=== PATIENT | male | born 1955 | race Caucasian/White ===

== ENCOUNTER 2018-09-02 20:18 | Emergency (ER) | payer OTHER, SELFPAY ==
[2018-09-02] MEDS ORDERED: Sodium Chloride 0.9% 10 ML Syringe FLUSH PRN (20:40)
[2018-09-02] MEDS: Sodium Chloride 0.9% 1,000 ML IV SCH ×2 (20:52→21:55)
[2018-09-02 21:08] LABS: CHLORIDE,CL 105 mmol/L (98-107); SODIUM,NA 142 mmol/L (136-145)
--- NOTE | 2018-09-02 22:20 | EDM.PDOC ---
ED HPI GENERAL MEDICAL PROBLEM - General Chief Complaint: General Stated Complaint: seizure, dehydration?, leg pain Time Seen by Provider: 09/02/18 20:30 Source of Information: Reports: Patient, Family History Limitations: Reports: No Limitations - History of Present Illness INITIAL COMMENTS - FREE TEXT/NARRATIVE: Patient is a 62-year-old gentleman who came into the hospital complaining of nausea and generalized weakness fatigue possible dehydration patient states that at 5 PM his friend came in and asked when he started feeling bad or he was having sweats and shakes and chills that would feel hot he stated that he passed out and his noted that he was shaking and his eyes rolled back after this patient was brought in for evaluation had some nausea also states that his right groin started hurting earlier today for the last couple days he' s been bathing [employer] and doing chores at home Onset: Gradual Duration: Hour(s):, Improving Location: Reports: Generalized Quality: Reports: Ache Improves with: Reports: None Worsens with: Reports: None Associated Symptoms: Reports: Nausea/Vomiting Right Upper Thigh Pain Score (Numeric/FACES): 8 - Related Data Allergies Allergy/AdvReac Type Severity Reaction Status Date / Time No Known Allergies Allergy Verified 09/02/18 20:21 Home Meds: Home Meds . [No Known Home Meds] 09/02/18 [History] Past Medical History HEENT History: Reports: Allergic Rhinitis Musculoskeletal History: Reports: Arthritis, Fracture Other Musculoskeletal History: multiple fx of toes and fingers. Right knee pain - Past Surgical History HEENT Surgical History: Reports: Cataract Surgery, Oral Surgery GI Surgical History: Reports: Appendectomy Musculoskeletal Surgical History: Reports: Joint Replacement Other Musculoskeletal Surgeries/Procedures:: left knee replacement Social & Family History - Tobacco Use Smoking Status *Q: Current Every Day Smoker Years of Tobacco use: 49 Packs/Tins Daily: 0.2 - Caffeine Use Caffeine Use: Reports: Coffee, Soda ED ROS GENERAL - Review of Systems Review Of Systems: See Below Constitutional: Reports: No Symptoms HEENT: Reports: Rhinitis, Sinus Problem (Chronic) Respiratory: Reports: Other (Smoker) Cardiovascular: Reports: No Symptoms Endocrine: Reports: No Symptoms GI/Abdominal: Reports: Nausea : Reports: No Symptoms Musculoskeletal: Reports: Other (Right groin pain to palpation not so much when resting) Neurological: Reports: No Symptoms Psychiatric: Reports: No Symptoms Hematologic/Lymphatic: Reports: No Symptoms Immunologic: Reports: No Symptoms ED EXAM, GENERAL - Physical Exam Exam: See Below Exam Limited By: No Limitations General Appearance: Alert, WD/WN, No Apparent Distress, Mild Distress Ears: Normal External Exam, Normal Canal, Hearing Grossly Normal, Normal TMs Ear Exam: Bilateral Ear: Auricle Normal, Canal Normal, TM normal Nose: Nasal Drainage Throat/Mouth: Normal Inspection, Normal Lips, Normal Teeth, Normal Gums, Normal Oropharynx, Normal Voice, No Airway Compromise Head: Atraumatic, Normocephalic Neck: Normal Inspection, Supple, Non-Tender, Full Range of Motion Respiratory/Chest: No Respiratory Distress, Lungs Clear, Normal Breath Sounds, No Accessory Muscle Use, Chest Non-Tender Cardiovascular: Normal Peripheral Pulses, Regular Rate, Rhythm, No Edema, No Gallop, No JVD, No Murmur, No Rub GI/Abdominal: Normal Bowel Sounds, Soft, Non-Tender, No Organomegaly, No Distention, No Abnormal Bruit, No Mass Course - Vital Signs Last Recorded V/S: Last Vital Signs Temp 97.1 F 09/02/18 20:22 Pulse 78 09/02/18 22:30 Resp 18 09/02/18 20:22 BP 116/59 L 09/02/18 22:30 Pulse Ox 100 09/02/18 22:30 - Orders/Labs/Meds Orders: Active Orders 24 hr Category Date Time Status Sodium Chloride 0.9% [Normal Saline] 1,000 ml Med 09/02/18 20:45 Active IV ASDIRECTED Sodium Chloride 0.9% [Saline Flush] Med 09/02/18 20:40 Active 10 ml FLUSH ASDIRECTED PRN Saline Lock Insert [OM.PC] Stat Oth 09/02/18 20:40 Ordered Medication Orders Sodium Chloride (Normal Saline) 1,000 mls @ 999 mls/hr IV ASDIRECTED CLAUDIA Stop: 09/03/18 21:46 Last Admin: 09/02/18 21:55 Dose: 999 mls/hr Infusion: 09/02/18 21:53 Dose: 999 mls/hr Admin: 09/02/18 20:52 Dose: 999 mls/hr Sodium Chloride (Saline Flush) 10 ml FLUSH ASDIRECTED PRN PRN Reason: Keep Vein Open Last Admin: 09/02/18 20:51 Dose: 10 ml Labs: Laboratory Tests 09/02/18 09/02/18 Range/Units 20:40 20:40 WBC 11.4 H (4.0-10.2) K/uL RBC 5.20 (4.33-5.41) M/uL Hgb 15.3 (13.1-16.8) g/dL Hct 43.9 (39.0-49.0) % MCV 84.4 (84.0-98.0) fL MCH 29.4 (28.2-33.3) pg MCHC 34.9 (31.7-36.0) g/dL RDW 14.4 H (11.2-14.1) % Plt Count 227 (150-350) K/uL Neut % (Auto) 74.3 (45.0-80.0) % Lymph % (Auto) 16.7 (10.0-50.0) % [place] % (Auto) 7.3 (2.0-14.0) % Eos % (Auto) 1.4 (0.0-5.0) % Baso % (Auto) 0.3 (0.0-2.0) % Neut # (Auto) 8.46 H (1.40-7.00) K/uL Lymph # (Auto) 1.90 (0.50-3.50) K/uL [place] # (Auto) 0.83 (0.00-1.00) K/uL Eos # (Auto) 0.16 (0.00-0.50) K/uL Baso # (Auto) 0.03 (0.00-0.20) K/uL Sodium 142 (136-145) mmol/L Potassium 3.5 (3.5-5.1) mmol/L Chloride 105 (98-107) mmol/L Carbon Dioxide 25.0 (21.0-32.0) mmol/L BUN 20 H (7-18) mg/dL Creatinine 1.02 (0.51-1.17) mg/dL Est Cr Clr Drug Dosing 78.95 mL/min Estimated GFR (MDRD) > 60 mL/min Glucose 118 H (74-106) mg/dL Calcium 8.9 (8.5-10.1) mg/dL Total Bilirubin 0.6 (0.2-1.0) mg/dL AST 13 L (15-37) U/L ALT 24 (12-78) U/L Alkaline Phosphatase 66 (46-116) IU/L Creatine Kinase 120 (26-308) U/L Total Protein 7.1 (6.4-8.2) g/dL Albumin 3.7 (3.4-5.0) g/dL Meds: Medications Generic Name Dose Route Start Last Admin Trade Name Freq PRN Reason Stop Dose Admin Sodium Chloride 1,000 mls @ 999 mls/hr 09/02/18 20:45 09/02/18 21:55 Normal Saline IV 09/03/18 21:46 999 mls/hr ASDIRECTED CLAUDIA Administration Sodium Chloride 10 ml 09/02/18 20:40 09/02/18 20:51 Saline Flush FLUSH 10 ml ASDIRECTED PRN Administration Keep Vein Open Departure - Departure Time of Disposition: 22:46 Disposition: DC/Tfer to [facility] Condition: Fair Clinical Impression: Dehydration - Discharge Information *PRESCRIPTION DRUG MONITORING PROGRAM REVIEWED*: No *COPY OF PRESCRIPTION DRUG MONITORING REPORT IN PATIENT SURINDER: No Referrals: Nancy Barron PA [Primary Care Provider] - Forms: ED Department Discharge Care Plan Goals: Patient hydrated with 2 L of normal saline feeling better no further nausea I will send him home and instructed to come if he starts feeling sick or having seizures or any discomfort at this time no further workup is needed he can follow-up with primary - My Orders Last 24 Hours: My Active Orders 09/02/18 20:40 Sodium Chloride 0.9% [Saline Flush] 10 ml FLUSH ASDIRECTED PRN Saline Lock Insert [OM.PC] Stat 09/02/18 20:45 Sodium Chloride 0.9% [Normal Saline] 1,000 ml IV ASDIRECTED - Assessment/Plan Last 24 Hours: My Active Orders 09/02/18 20:40 Sodium Chloride 0.9% [Saline Flush] 10 ml FLUSH ASDIRECTED PRN Saline Lock Insert [OM.PC] Stat 09/02/18 20:45 Sodium Chloride 0.9% [Normal Saline] 1,000 ml IV ASDIRECTED
== END 2018-09-02 23:03 | disposition home or self-care (01) ==
LOC: LL.ED 20:18
DX: E86.0 Dehydration (principal); R11.2 Nausea with vomiting, unspecified; R10.31 Right lower quadrant pain; M19.90 Unspecified osteoarthritis, unspecified site; F17.210 Nicotine dependence, cigarettes, uncomplicated; Z98.49 Cataract extraction status, unspecified eye; Z98.890 Other specified postprocedural states; Z90.49 Acquired absence of other specified parts of digestive tract; Z96.652 Presence of left artificial knee joint
CPT/HCPCS: 36415; 80053; 82550; 85025; 96360; 96361; 99284; J7030

== ENCOUNTER 2019-06-12 02:19 | Emergency (ER) | payer SELFPAY ==
[2019-06-12] MEDS ORDERED: Meperidine PF 25 MG/ML SDV IM ONE (02:46)
--- NOTE | 2019-06-12 02:46 | EDM.PDOC ---
ED HPI GENERAL MEDICAL PROBLEM - General Chief Complaint: Lower Extremity Injury/Pain Stated Complaint: Left hip pain Time Seen by Provider: 06/12/19 02:40 Source of Information: Reports: Patient, Old Records ([facility] chart/EMR) History Limitations: Reports: No Limitations - History of Present Illness INITIAL COMMENTS - FREE TEXT/NARRATIVE: The patient was brought to the emergency room via private automobile by his for evaluation of 11/25 left-sided low back pain, spasms, and anterior thigh discomfort radiating to the left knee with no history of fall, injury, etc. Symptoms started on 06/08 with patient only taking 2 tablets of Tylenol this past evening at about 20:00 hours with no relief. He denies any other topical treatments, previous medications, etc. for his symptoms. His pain has progressed causing him to have one episode of emesis earlier this evening secondary to his discomfort. No recent history of abdominal pain, heartburn, nausea, diarrhea, melena, gross hematochezia, or any food intolerance, including fatty foods, etc.. His symptoms are similar to previous episodes of sciatica. He denies any gross hematuria, colic, or other UTI symptoms The patient denies any chest pain/pressure, heart flutter, dizziness, orthostasis, orthopnea, diaphoresis, paresthesias, recent decreased exercise tolerance, or any other anginal-type symptoms. The patient also denies any recent fever, cough , wheezing, dyspnea, etc.. Onset: Gradual Onset Date: 06/09/19 Onset Time: 22:30 Duration: Constant, Getting Worse Location: Reports: Back, Lower Extremity, Left, Radiates to (As above). Denies : Head, Face, Neck, Chest, Abdomen, Pelvis, Upper Extremity, Left, Upper Extremity, Right, Lower Extremity, Right, Generalized Quality: Reports: Same as Previous Episode, Stabbing Severity: Severe Improves with: Reports: None Worsens with: Reports: None Context: Reports: Other (As above). Denies: Sick Contact, Trauma Associated Symptoms: Denies: Confusion, Chest Pain, Cough, Diaphoresis, Fever/ Chills, Headaches, Loss of Appetite, Malaise, Nausea/Vomiting, Seizure, Shortness of Breath, Syncope, Weakness Treatments DRIVERS LICENSE EXAMINER: Reports: Acetaminophen, Other (see below) Other Treatments DRIVERS LICENSE EXAMINER: Patient came in using crutches, which he had for his previous knee surgery Left Hip Pain Score (Numeric/FACES): 10 (As abovesciatica) - Related Data Allergies Allergy/AdvReac Type Severity Reaction Status Date / Time No Known Allergies Allergy Verified 06/12/19 02:32 Home Meds: Home Meds Acetaminophen [Tylenol] 650 mg PO Q4H PRN 06/12/19 [History] Cyclobenzaprine [Flexeril] 10 mg PO TID PRN #30 tab 06/12/19 [Rx] Past Medical History HEENT History: Reports: Allergic Rhinitis, Cataract, Impaired Vision, Other ( See Below) Other HEENT History: The patient wears reading glasses. Musculoskeletal History: Reports: Arthritis, Back Pain, Chronic, Fracture, Osteoarthritis Other Musculoskeletal History: Multiple fx of toes and fingers. Right knee pain with previous left knee surgery as below. Chronic low back pain with history of scoliosis and sciatica bilaterally. Neurological History: Denies: Neuropathy, Diabetic, Neuropathy, Peripheral - Past Surgical History HEENT Surgical History: Reports: Cataract Surgery, Oral Surgery, Other (See Below). Denies: Adenoidectomy, Eye Surgery, Laser Surgery, LASIK, Myringotomy w Tube(s), Naso-Sinus Surgery, Tonsillectomy Other HEENT Surgeries/Procedures: Teeth extractions with complete dentures uppers and lowers. GI Surgical History: Reports: Appendectomy, Other (See Below) Other GI Surgeries/Procedures: Appendectomy age 9. Neurological Surgical History: Reports: None. Denies: C-Spine, Discectomy, Laminectomy, Lumbar Spine, Sacral Spine, Spinal Fusion, Thoracic Spine, Vertebroplasty Musculoskeletal Surgical History: Reports: Joint Replacement, Knee Replacement Other Musculoskeletal Surgeries/Procedures:: Left total knee arthroplasty on 13/01. Social & Family History - Family History Cardiac: Reports: Bypass, CAD, Hypertension, SC, Other (See Below) Other Cardiac Family History: History of MIs in multiple paternal family members. Sister with CABG. Sister with hypertension. Respiratory: Reports: COPD, Other (See Below) Other Respiratory Family Hisory: Maternal uncle with COPD with history of tobacco use. Musculoskeletal: Reports: Arthritis, Osteoarthritis, Other (See Below) Other Musculoskeletal Family History: Multiple family members with osteoarthritis including a mother with TKA and brother with hip TEP. Neurological: Reports: Alzheimers Disease, CVA, Dementia, Parkinson's, Other ( See Below) Other Neurological Family History: Sister with CVA. Brother with Parkinson's disease. Father with Alzheimer's disease. Endocrine/Metabolic: Reports: Diabetes, type II, IDDM, Other (See Below) Other Endocrine/Metabolic Family History: IDDM in brothers 2 and a sister. - Tobacco Use Smoking Status *Q: Current Every Day Smoker Tobacco Use Within Last Twelve Months: Cigarettes Years of Tobacco use: 50 Packs/Tins Daily: 0.3 Packs/Tins Daily Comment: Started smoking at age 13. Additional chewing tobacco use history. 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 ED EXAM, GENERAL - Physical Exam Exam: See Below Exam Limited By: No Limitations General Appearance: Alert, WD/WN, No Apparent Distress Head: Atraumatic, Normocephalic Neck: Normal Inspection, Supple, Non-Tender, Full Range of Motion. No: Lymphadenopathy (L), Lymphadenopathy (R), Thyromegaly Respiratory/Chest: No Respiratory Distress, Lungs Clear, Normal Breath Sounds, No Accessory Muscle Use, Chest Non-Tender. No: Pleural Rub, Retractions Cardiovascular: Normal Peripheral Pulses, Regular Rate, Rhythm, No Edema, No Gallop, No JVD, No Murmur, No Rub. No: Gallop/S3, Gallop/S4, Friction Rub Peripheral Pulses: 2+: Radial (L), Radial (R) GI/Abdominal: Normal Bowel Sounds, Soft, Non-Tender, No Organomegaly, No Distention, No Abnormal Bruit, No Mass, Pelvis Stable. No: Guarding (Male) Exam: Deferred Rectal (Males) Exam: Deferred Back Exam: Decreased Range of Motion (Secondary to discomfort), Muscle Spasm ( Left mid lumbar regionmild), Paraspinal Tenderness (Mild in the left mid lumbar region). No: CVA Tenderness (L), CVA Tenderness (R), Vertebral Tenderness Extremities: Non-Tender, No Pedal Edema, Normal Capillary Refill, Leg Pain ( Left anterior thigh with no local swelling, ecchymosis, etc. No joint instability, etc. in the left hip.), Limited Range of Motion (Left leg secondary to pain). No: Nhung's Sign Neurological: Alert, Oriented, CN II-XII Intact, Normal Cognition, Normal Gait, No Motor/Sensory Deficits Psychiatric: Anxious (Mild), Depressed Mood (Borderline) Skin Exam: Warm, Dry, Intact, Normal Color, No Rash. No: Diaphoretic, Wound/ Incision Lymphatic: No Adenopathy Course - Vital Signs Last Recorded V/S: Last Vital Signs Temp 37.1 C 06/12/19 02:21 Pulse 92 06/12/19 02:21 Resp 13 06/12/19 02:21 BP 128/78 06/12/19 02:21 Pulse Ox 98 06/12/19 02:21 Vital Signs - 24 hr 06/12/19 02:21 Temperature [ 37.1 C Temporal] Pulse, 92 Peripheral [ Right Pulse Oximetry] Respiratory 13 Rate Blood Pressure 128/78 [Right Upper Arm] O2 Sat by Pulse 98 Oximetry - Orders/Labs/Meds Orders: Active Orders 24 hr Category Date Time Status Meperidine [Demerol] Med 06/12/19 02:46 Once 50 mg IM ONETIME ONE Promethazine [Phenergan] Med 06/12/19 02:47 Once 50 mg IM ONETIME ONE Obtain Past Medical Record [OM.PC] Routine Oth 06/12/19 02:46 Ordered Medication Orders Meperidine HCl (Demerol) 50 mg IM ONETIME ONE Stop: 06/12/19 02:47 Labs: None Meds: Medications Generic Name Dose Route Start Last Admin Trade Name Freq PRN Reason Stop Dose Admin Meperidine HCl 50 mg 06/12/19 02:46 Demerol IM 06/12/19 02:47 ONETIME ONE - Radiology Interpretation Free Text/Narrative:: None Departure - Departure Time of Disposition: 03:15 Disposition: Home, Self-Care 01 Condition: Good Clinical Impression: Tobacco abuse counseling Sciatica Qualifiers: Laterality: right Qualified Code(s): M54.31 - Sciatica, right side Osteoarthritis Qualifiers: Osteoarthritis location: multiple joints Osteoarthritis type: primary Qualified Code(s): M89.49 - Other hypertrophic osteoarthropathy, multiple sites - Discharge Information *PRESCRIPTION DRUG MONITORING PROGRAM REVIEWED*: Not Applicable *COPY OF PRESCRIPTION DRUG MONITORING REPORT IN PATIENT SURINDER: Not Applicable Prescriptions: Cyclobenzaprine [Flexeril] 10 mg PO TID PRN #30 tab PRN Reason: Spasms Instructions: Steps to Quit Smoking, [id number], Sciatica, Cyclobenzaprine tablets, Promethazine injection, Meperidine injection, Health Risks of Smoking Forms: ED Department Discharge Additional Instructions: 1. Follow up with your regular provider in 10-14 days as needed, if symptoms persist. Bring these discharge instructions with you to that visit.. 2. Tylenol 650 mg by mouth every 4 hours and/or OTC ibuprofen 2-3 tabs by mouth every 6 hours with food as directed./needed. You may stagger these medications for 48-72 hours only, which essentially means that you are receiving a pain medication about every 2 hours. 3. Sedation precautions with no driving, etc. for 18 hours because of emergency room medications. 4. Secondary to medications given in the emergency room you may not take her first dose of Flexeril for 6 hours then as needed with caution secondary to possible sedation, dry mouth, etc. 5. BenGay or equivalent, heating pad, and/or ice packs as directed.\ 6. Stop all tobacco use GULSHAN as directed/per provided information and consider contacting Quit LIne, etc.. 7. Immediately after this visit verify that your cellular telephone's voicemail has been activated and is empty. Also verify that your home telephone 's answering machine is operating properly and has space to receive messages. Note that it is sometimes necessary for us to be able to contact you at a later date to discuss your medical care. 8. Please remember that we are ALWAYS here for you and want to answer any questions you may have. Feel free to call the hospital any time and we call you back GULSHAN. Sepsis Event Note - Evaluation Sepsis Screening Result: No Definite Risk - Focused Exam Vital Signs: Vital Signs Temp Pulse Resp BP Pulse Ox 06/12/19 02:21 37.1 C 92 13 128/78 98 Date Exam was Performed: 06/12/19 Time Exam was Performed: 02:48 - Problem List & Annotations (1) Sciatica SNOMED Code(s): 66633537 Code(s): M54.30 - SCIATICA, UNSPECIFIED SIDE Status: Acute Priority: High Current Visit: Yes Onset Date: ~06/09/19 Annotation/Comment:: Long history of bilateral sciatica and chronic low back pain with no recent history of fall or injury. Symptomatic relief as per discharge instructions. IM Demerol and Phenergan given in the emergency room with sedation precautions also provided both for his as needed Flexeril and today's injections as above. Patient may need baseline x-rays of his lumbar spine with possible further MRI of the lumbar region depending on his clinical course. Qualifiers: Laterality: left Qualified Code(s): M54.32 - Sciatica, left side (2) Osteoarthritis SNOMED Code(s): 748249820 Code(s): M19.90 - UNSPECIFIED OSTEOARTHRITIS, UNSPECIFIED SITE Status: Chronic Priority: Medium Current Visit: Yes Annotation/Comment:: Otherwise stable by history Qualifiers: Osteoarthritis location: multiple joints Osteoarthritis type: primary Qualified Code(s): M89.49 - Other hypertrophic osteoarthropathy, multiple sites (3) Tobacco abuse counseling SNOMED Code(s): 559967230, 076565080, 575522365 Code(s): Z71.6 - TOBACCO ABUSE COUNSELING Status: Chronic Priority: Medium Current Visit: Yes Annotation/Comment:: Tobacco cessation information provided, however he did not appear interested in stopping smoking at this time. - Problem List Review Problem List Initiated/Reviewed/Updated: Yes - My Orders Last 24 Hours: My Active Orders 06/12/19 02:46 Meperidine [Demerol] 50 mg IM ONETIME ONE Obtain Past Medical Record [OM.PC] Routine 06/12/19 02:47 Promethazine [Phenergan] 50 mg IM ONETIME ONE - Assessment/Plan Last 24 Hours: My Active Orders 06/12/19 02:46 Meperidine [Demerol] 50 mg IM ONETIME ONE Obtain Past Medical Record [OM.PC] Routine 06/12/19 02:47 Promethazine [Phenergan] 50 mg IM ONETIME ONE Assessment:: As above Plan: As above. Extensive precautions were given to the patient and his , who are in agreement with the treatment plan. See Patient Instructions for further treatment and plan.
[2019-06-12] MEDS ORDERED: Promethazine 25 MG/ML SDV IM ONE (02:47)
== END 2019-06-12 03:05 | disposition home or self-care (01) ==
LOC: LL.ED 02:19
DX: M54.42 Lumbago with sciatica, left side (principal); M89.49 Other hypertrophic osteoarthropathy, multiple sites; F17.220 Nicotine dependence, chewing tobacco, uncomplicated; F17.210 Nicotine dependence, cigarettes, uncomplicated; Z71.6 Tobacco abuse counseling
CPT/HCPCS: 96372; 99283; J2175; J2550

== ENCOUNTER 2021-04-16 14:11 | Emergency (ER) | payer MEDICARE ==
[2021-04-16] MEDS ORDERED: Acetaminophen/HYDROcodone 325-10 MG Tab PO ONE (14:13)
[2021-04-16 15:05] LABS: ANION GAP 7.2 meq/L (7-15); CHLORIDE,CL 102 mmol/L (98-107); SODIUM,NA 137 mmol/L (136-145)
== END 2021-04-16 15:45 | disposition home or self-care (01) ==
LOC: LL.ED 14:11
DX: L03.116 Cellulitis of left lower limb (principal); M19.90 Unspecified osteoarthritis, unspecified site
CPT/HCPCS: 36415; 73610-LT; 80053; 83605; 84484; 84550; 85025; 85379; 85652; 86140; 93005; 93010; 99284; 99284-25; A9270-GY

== ENCOUNTER 2021-04-20 09:58 | Emergency (ER) | payer MEDICARE ==
[2021-04-20 12:19] LABS: ANION GAP 12.3 meq/L (7-15)
[2021-04-20] MEDS ORDERED: Sodium Chloride 0.9% 10 ML Syringe FLUSH PRN (12:26)
[2021-04-20] MEDS ORDERED: Lactated Ringers 1,000 ML IV ONE (12:27)
== END 2021-04-20 14:45 | disposition home or self-care (01) ==
LOC: LL.ED 09:58
DX: M16.12 Unilateral primary osteoarthritis, left hip (principal); M19.012 Primary osteoarthritis, left shoulder; E86.0 Dehydration; R74.8 Abnormal levels of other serum enzymes; Z72.0 Tobacco use
CPT/HCPCS: 36415; 73030; 73502; 80053; 82550; 85025; 86140; 99283; 99284; J7120